=== PATIENT | female | born 1975 | race Caucasian/White ===

== ENCOUNTER 2018-06-18 13:07 | Emergency (ER) | payer OTHER ==
[~2018-06-18] VITALS: Ht 160 cm; Wt 108.9 kg
[~2018-06-18 13:07] MED LIST: CITA40TA5 PO; CYCL5TAB PO; FLUT9.9S NS; LEVO100T5 PO; OXYC-327 PO; TRAZ-86 PO
[2018-06-18 13:20] VITALS: BP 134/77
--- NOTE | 2018-06-18 15:28 | RAD ---
EXAM: Thoracic spine, 3 views; lumbar spine, 3 views. HISTORY: Fall. COMPARISON: CT dated 12/23/2014. FINDINGS: Lumbar spine: Frontal, lateral and coned sacral views of the lumbar spine are obtained. There are chronic endplate depressions at L5. There is no acute or subacute fracture. There is no listhesis. The disc spaces are preserved. There is facet arthropathy at the lumbosacral junction. There are cholecystectomy clips. Thoracic spine: Frontal, lateral and swimmer's views of the thoracic spine are obtained. There is minimal thoracic curvature. There is no listhesis. The vertebral bodies are normal in height and the disc spaces are preserved. IMPRESSION: No acute osseous finding. Electronically signed by: Tessy Juarez MD (06/18/2018 3:25 PM) [facility]
--- NOTE | 2018-06-18 15:45 | PHYS DOC ---
Past Medical History Past Medical History: Anxiety, Hypothyroid Past Surgical History: Cholecystectomy, Hysterectomy Alcohol Use: None Drug Use: None Adult General Chief Complaint Chief Complaint: MECHANICAL FALL HPI HPI Patient is a 43 year old female who presents with low back, left shoulder and right calf pain after she slipped and fell at a [employer] today. The patient states it was raining out and when she stepped into the store her feet went out from underneath her and she fell on her buttocks. She denies loss of consciousness, saddle numbness, foot drop or spontaneous loss of bowel or bladder. She states that she immediately had low back pain that has now had increasing pain in her left shoulder. Review of Systems Review of Systems Constitutional: Denies fever or chills [] Respiratory: Denies cough or shortness of breath [] Cardiovascular: No additional information not addressed in HPI [] GI: Denies abdominal pain, nausea, vomiting, bloody stools or diarrhea [] : Denies dysuria or hematuria [] Musculoskeletal: See history of present illness Integument: Denies rash or skin lesions [] Neurologic: Denies headache, focal weakness or sensory changes [] Endocrine: Denies polyuria or polydipsia [] All other systems were reviewed and found to be within normal limits, except as documented in this note. Allergies Allergies Allergies Coded Allergies Type Severity Reaction Last Updated Verified sulfamethoxazole Allergy Intermediate Swelling 07/03/15 Yes trimethoprim Allergy Intermediate Swelling 07/03/15 Yes Physical Exam Physical Exam Constitutional: Well developed, well nourished, no acute distress, non-toxic appearance. [] Neck: Normal range of motion, no tenderness, supple, no stridor. [] Cardiovascular:Heart rate regular rhythm, no murmur [] Lungs & Thorax: Bilateral breath sounds clear to auscultation [] Abdomen: Bowel sounds normal, soft, no tenderness, no masses, no pulsatile masses. [] Skin: Warm, dry, no erythema, no rash. [] Back: Point spinal lumbar tenderness with no gross deformities or step-offs noted, tenderness to spinal accessory muscles, tenderness to left shoulder with palpation, no CVA tenderness. [] Extremities: tenderness to right calf with palpation, no cyanosis, no clubbing, ROM intact, no edema or ecchymosis noted. [] Neurologic: Alert and oriented X 3, normal motor function, normal sensory function, no focal deficits noted. [] Psychologic: Affect normal, judgement normal, mood normal. [] Current Patient Data Vital Signs Vital Signs Date Time Temp Pulse Resp B/P (MAP) Pulse Ox O2 Delivery O2 Flow Rate FiO2 06/18/18 13:20 97.5 89 16 134/77 (96) 97 Room Air 97.5 EKG EKG [] Radiology/Procedures Radiology/Procedures [] PATIENT: TIFFANIE MARISCAL ACCOUNT: [id number] : 1975 LOCATION: ER AGE: 43 SEX: F EXAM STATUS: REG ER ORD. PHYSICIAN: ISAAC LEE APRN REASON: fell today PROCEDURE: THORACIC SPINE 3V EXAM: Thoracic spine, 3 views; lumbar spine, 3 views. HISTORY: Fall. COMPARISON: CT dated 12/23/2014. FINDINGS: Lumbar spine: Frontal, lateral and coned sacral views of the lumbar spine are obtained. There are chronic endplate depressions at L5. There is no acute or subacute fracture. There is no listhesis. The disc spaces are preserved. There is facet arthropathy at the lumbosacral junction. There are cholecystectomy clips. Thoracic spine: Frontal, lateral and swimmer's views of the thoracic spine are obtained. There is minimal thoracic curvature. There is no listhesis. The vertebral bodies are normal in height and the disc spaces are preserved. IMPRESSION: No acute osseous finding. Electronically signed by: Tessy Duarte MD (06/18/2018 3:25 PM) [facility] DICTATED and SIGNED BY: TESSY DUARTE MD DATE: 06/18/18 1523 Course & Med Decision Making Course & Med Decision Making Pertinent Labs and Imaging studies reviewed. (See chart for details) The patient has taken ibuprofen at home. She is encouraged to continue ibuprofen and Tylenol for pain. She is to follow-up with her primary care provider for a recheck if not improving in 3 days. Staff Physician Addendum: I was working in the ER during the course of this patient's visit. I was available for consultation as needed, but I was not directly involved in the care of this patient. Dragon Disclaimer Dragon Disclaimer This electronic medical record was generated, in whole or in part, using a voice recognition dictation system. Departure Departure Impression: Primary Impression: Contusion Disposition: 01 HOME, SELF-CARE Condition: STABLE Referrals: BALJIT HAN MD (PCP) Patient Instructions: Contusion Additional Instructions: There were no acute fractures found on x-ray. You may take ibuprofen or Tylenol , use heating pads or use hot water therapy for comfort. Follow-up with your primary care provider in 3 days if not improving or return to the emergency department if worsening. ISAAC LEE APRN Jun 18, 2018 15:45 DORIAN FRANCISCO MD Jun 18, 2018 17:37
== END 2018-06-18 15:55 | disposition home or self-care (01) ==
LOC: ER 13:07
DX: S40.012A Contusion of left shoulder, initial encounter (principal); S80.11XA Contusion of right lower leg, initial encounter; S30.0XXA Contusion of lower back and pelvis, initial encounter; F41.9 Anxiety disorder, unspecified; E03.9 Hypothyroidism, unspecified; Z90.49 Acquired absence of other specified parts of digestive tract; Z90.710 Acquired absence of both cervix and uterus; Z88.2 Allergy status to sulfonamides; Z88.1 Allergy status to other antibiotic agents; W01.0XXA Fall on same level from slipping, tripping and stumbling without subsequent striking against object, initial encounter; Y93.89 Activity, other specified; Y92.89 Other specified places as the place of occurrence of the external cause; Y99.8 Other external cause status
CPT/HCPCS: 72072; 72100; 99284

== ENCOUNTER → 2019-02-25 | Outpatient (CLI) | payer BC ==
[~2019-02-25] MED LIST changes: -OXYC-327 PO; +OXYC1TAB19 PO
--- NOTE | 2019-02-25 17:57 | KCIC ---
EXAM: Cervical spine, 3 views. HISTORY: Pain. COMPARISON: None. FINDINGS: 3 views of the cervical spine are obtained. There is no listhesis. The vertebral alva are normal in height and the disc spaces are preserved. The prevertebral soft tissues are unremarkable. IMPRESSION: No acute osseous finding. Electronically signed by: Tessy Juarez MD (02/25/2019 5:55 PM) [facility]
--- NOTE | 2019-02-25 17:57 | KCIC ---
EXAM: Right hip, 2 views; right femur, 2 views. HISTORY: Pain. COMPARISON: None. FINDINGS: 2 views of the right hip and femur are obtained. There is no fracture, dislocation or subluxation. There may be a small bone island within the inferior pubic ramus. The femoral head is normal in configuration. There is no periosteal reaction. There is no knee effusion. IMPRESSION: No acute osseous finding. Electronically signed by: Tessy Juarez MD (02/25/2019 5:54 PM) [facility]
== END | disposition home or self-care (01) ==
LOC: KCIC 14:55
PROVIDERS: ATTEND Family Medicine
DX: M54.2 Cervicalgia (principal); M25.551 Pain in right hip; M79.604 Pain in right leg
CPT/HCPCS: 72040; 73502; 73552

== ENCOUNTER → 2019-12-17 | Outpatient (CLI) | payer BC, OTHER ==
[~2019-12-17] MED LIST changes: +TRAZ-123 PO; -TRAZ-86 PO
--- NOTE | 2019-12-17 15:00 | KCIC ---
EXAM: Bilateral screening mammogram. HISTORY: 44-year-old female presents for screening mammography. TECHNIQUE: Full-field digital craniocaudal and mediolateral oblique views of both breasts are obtained for evaluation. Computer aided detection with ScaliD software version 9.3 was applied. COMPARISON: 08/01/2014 BREAST PARENCHYMAL DENSITY: Level B - Scattered fibroglandular densities. FINDINGS: There is no new suspicious mass, microcalcification or region of architectural distortion. IMPRESSION: BI-RADS Category 2: Benign finding(s). RECOMMENDATION: Annual mammography is recommended. If your mammogram demonstrates that you have dense breast tissue, which could hide abnormalities, and if you have other risk factors for breast cancer that have been identified, you might benefit from supplemental screening tests that may be suggested by your ordering physician. Dense breast tissue, in and of itself, is a relatively common condition. This information is not provided to cause undue concern, but rather to raise your awareness and to promote discussion with your physician regarding the presence of other risk factors, in addition to dense breast tissue. A report of your mammography results will be sent to you and your physician. You should contact your physician if you have any questions or concerns regarding this report. Mammography is a sensitive method for finding small breast cancers, but it does not detect them all and is not a substitute for careful clinical examination. A negative mammogram does not negate a clinically suspicious finding and should not result in delay in biopsying a clinically suspicious abnormality. PQRS compliance statement - Patient information was entered into a reminder system with a target due date for the next mammogram. "Our facility is accredited by the [employer] Mammography Program." Electronically signed by: Tessy Juarez MD (12/17/2019 2:58 PM) [id number]
--- NOTE | 2019-12-17 16:13 | KCIC ---
FOOT LEFT 3V DATE: 12/17/2019 12:00 AM INDICATION: Foot pain COMPARISON: None. FINDINGS: Bones: There is no evidence of acute fracture or dislocation. Small posterior and plantar calcaneus enthesophytes. Joints: The joint spaces are normal. Miscellaneous: None. IMPRESSION: No acute osseous abnormality. Electronically signed by: Joon South MD (12/17/2019 4:10 PM) [id number]
== END ==
LOC: KCIC MAMMO 13:14
PROVIDERS: ATTEND Family Medicine
DX: Z12.31 Encounter for screening mammogram for malignant neoplasm of breast (principal); M79.672 Pain in left foot
CPT/HCPCS: 73630; 77067